=== PATIENT | male | born 2000 | race Caucasian/White ===

== ENCOUNTER 2021-01-31 15:59 | Emergency (ER) | payer OTHER, SELFPAY ==
--- NOTE | 2021-01-31 15:52 | ECG_ITS ---
APPROVED REPORT Exam: Resting ECG HR:80 bpm ECG Measurements Heart Rate 80 AXES AL 154 P 79 QRSd 96 QRS 16 QT 354 T 59 QTc 408 Conclusion Normal sinus rhythm with sinus arrhythmia Normal ECG Electronically signed by : Uriel Daniels, 02/02/2021 13:24:19
[2021-01-31 15:59] VITALS: BP 137/96; PULSE 74; RESP 20; TEMP 37.7; O2SAT 100; BMI 25.1
--- NOTE | 2021-01-31 16:01 | [facility].EDGENADL ---
ED Disposition Clinical Impression: Chest pain Qualifiers: Chest pain type: chest pain on breathing Qualified Code(s): R07.1 - Chest pain on breathing Disposition: Home, Self-Care Condition on Discharge: Good Additional Instructions: I believe you may be suffering from pleurisy. This is inflammation of the lining of your lung and chest cavity. When breathing his pain can be worsened especially on coughing and deep inhalation. Take high-dose ibuprofen, 800 mg in the morning and at night. Always take ibuprofen with food. Drink plenty of clear fluids. Please try to cut back on her smoking as this can lead to many adverse outcomes down the line. Return immediately to our emergency department if recurrent or worsening chest pain, shortness of breath, fever/chills, productive cough, or other new concerning symptoms. Referrals: PCP,No [Primary Care Provider] - - Critical Care Critical Care Time: No Attestation: On , the high probability of a clinically significant, sudden or life threatening deterioration of the following system(s) required my full and direct attention, intervention and personal management. The time I documented below is in addition to time spent performing reported procedures but includes the following listed in this critical care notation. Medical Decision Making - Medical Records Medical records reviewed: Yes: I reviewed the patient's medical records. - Angel Inquiry Pt receiving controlled substance: No Vital Signs: 01/31/21 15:59 01/31/21 16:31 01/31/21 17:01 Temperature 99.8 F H Temperature Source Oral Pulse Rate 58 L 61 Pulse Rate [Left Radial] 74 Respiratory Rate 20 18 17 Blood Pressure 127/83 114/63 Blood Pressure [Right Arm] 137/96 H Blood Pressure Mean 95 83 Blood Pressure Mean [Right Arm] 109 Blood Pressure Source [Right Arm] Automatic Cuff Blood Pressure Position [Right Arm] Sitting 02 Sat by Pulse Oximetry 100 98 99 Oxygen Delivery Method Room Air 01/31/21 17:30 Temperature Temperature Source Pulse Rate 61 Pulse Rate [Left Radial] Respiratory Rate 17 Blood Pressure 125/76 Blood Pressure [Right Arm] Blood Pressure Mean 93 Blood Pressure Mean [Right Arm] Blood Pressure Source [Right Arm] Blood Pressure Position [Right Arm] 02 Sat by Pulse Oximetry 99 Oxygen Delivery Method - Lab Data Lab Results 01/31/21 16:01: WBC 6.8, RBC 5.10, Hgb 16.1, Hct 48.0, MCV 94.1 H, MCH 31.5 H, MCHC 33.5, RDW 12.9, Plt Count 194, MPV 7.6, Neut % (Auto) 66.3, Lymph % (Auto) 27.1, [place] % (Auto) 5.1, Eos % (Auto) 0.8, Baso % (Auto) 0.7, Neut # (Auto) 4.5, Lymph # (Auto) 1.8, [place] # (Auto) 0.4, Eos # (Auto) 0.1, Baso # (Auto) 0.1 01/31/21 16:01: Sodium 139, Potassium 4.1, Chloride 103, Carbon Dioxide 29, Anion Gap 11.1, BUN 20, Creatinine 1.00, Estimated Creat Clear 130, Estimated GFR 96, Est GFR ( Amer) 116, Glucose 107 H, Calcium 9.4, Troponin I < 0.01 01/31/21 16:01: D-Dimer 0.82 H Result diagrams: 01/31/21 16:01 01/31/21 16:01 Orders (Tests/Meds): ED MEDICATIONS Discontinued Medications Generic Name Dose Route Start Last Admin Trade Name Freq PRN Reason Stop Dose Admin Iopamidol 70 ml 01/31/21 19:37 01/31/21 19:38 Iopamidol-370 (76%);100ml Bottle IV 01/31/21 19:38 70 ml ONCE ONE Administration Sodium Chloride 40 ml 01/31/21 19:37 01/31/21 19:38 0.9% Sodium Chloride 20ml Vial IV 01/31/21 19:38 40 ml ONCE ONE Administration Sodium Chloride 10 ml 01/31/21 19:37 01/31/21 19:38 Sodium Chloride 0.9% 10ml Syr (Rad Only) IV 01/31/21 19:38 10 ml ONCE ONE Administration ORDERS Category Date Time Status CT Chest w/PE protocol [CT angio chest] Stat Cat Scan 01/31/21 18:59 Taken Troponin I Q3H Lab 01/31/21 22:15 Ordered Medical Decision Narrative: Patient presents the emergency department with chest pain. EKG obtained at [facility] upon arrival demonstrates no acute ST elevation/depression. No signs of p
--- NOTE | 2021-01-31 16:12 | XR_ITS ---
PROCEDURE: XR CHEST 2V CLINICAL HISTORY: chest pain COMPARISON: No exams were available for comparison FINDINGS: No focal consolidation, pleural effusions or pneumothorax. The cardiac size and central pulmonary vasculature within normal limits. Visualized osseous structures are unremarkable. IMPRESSION: No acute cardiopulmonary process. Dictated by: Ailyn Morelos 01/31/2021 16:38 Ailyn Morelos in [place] 01/31/2021 16:38
[2021-01-31 16:24] LABS: Basophils # 0.1 K/mm3 (0-0.2); Basophils % 0.7 % (0.1-2.0); Eosinophils # 0.1 K/mm3 (0.0-0.4); Eosinophils % 0.8 % (0.1-12.0); Hemoglobin 16.1 g/dL (14.1-18.0); Lymphocytes # 1.8 K/mm3 (0.7-4.5); Lymphocytes % 27.1 % (10-50); Mean Corpuscular HGB Conc 33.5 g/dL (31.8-35.4); Mean Corpuscular Hemoglobin 31.5 pg (27.0-31.2); Mean Corpuscular Volume 94.1 fl (80-94); Mean Platelet Volume 7.6 fl (7.4-10.4); Monocytes # 0.4 K/mm3 (0.1-1.0); Monocytes % 5.1 % (1.7-9.3); Neutrophils # 4.5 K/mm3 (1.8-7.8); Neutrophils % 66.3 % (37.0-80.0); Platelet Count 194 K/mm3 (142-424); Red Cell Distribution Width 12.9 % (11.5-17.5); White Blood Count 6.8 K/mm3 (4.5-13.0)
[2021-01-31 16:31] VITALS: BP 127/83; PULSE 58; RESP 18; O2SAT 98
[2021-01-31 17:01] VITALS: BP 114/63; PULSE 61; RESP 17; O2SAT 99
[2021-01-31 17:01] LABS: Chloride 103 mmol/L (98-107); Potassium 4.1 mmoL/L (3.5-5.1); Sodium 139 mmol/L (136-145)
[2021-01-31 17:04] LABS: Anion Gap 11.1 mEq/L (5-15); Blood Urea Nitrogen 20 mg/dl (9-20); Calcium 9.4 mg/dl (8.4-10.2); Carbon Dioxide 29 mmol/L (22.0-30.0); Creatinine Clearance Estimated 130 mL/min (50-200); Estimated Glomerular Filt Rate 96 ml/min (>60); GFR (African American) 116 ML/MIN (>60); Glucose 107 mg/dl (74-100)
[2021-01-31 17:29] LABS: Troponin I < 0.01 ng/ml (0.00-0.034)
[2021-01-31 17:30] VITALS: BP 125/76; PULSE 61; RESP 17; O2SAT 99
[2021-01-31 18:42] LABS: D-Dimer 0.82 ug/mL (0.0-0.5)
--- NOTE | 2021-01-31 18:59 | CT_ITS ---
PROCEDURE: CT ANGIO CHEST CLINCIAL INDICATION: pleuritic chest pain with positive d dimer COMPARISON: No exams were available for comparison TECHNIQUE: IV Contrast: 70ML Isovue 370 Axial images obtained with sagittal and coronal reformats. All CT scans at the facility use one or more dose reduction, viz: automated exposure control, ma/kV adjustment per patient size (including targeted exams where dose is matched to indication, i.e. head), or iterative reconstruction technique. FINDINGS: HEART AND MEDIASTINAL STRUCTURES: The pulmonary arteries demonstrate normal opacification without evidence of focal filling defects. The heart size is normal. No pericardial effusions. The thoracic aorta is unremarkable. No significant mediastinal adenopathy. LUNGS AND PLEURAL SPACES: No focal consolidation, pleural effusions or pneumothorax. The central tracheobronchial tree is patent. No suspicious lung nodules are noted BONY STRUCTURES: Visualized osseous structures are unremarkable UPPER ABDOMEN: Visualized upper abdominal solid organs are unremarkable within the limitations of the phase of IV contrast. ADDITIONAL FINDINGS: Minor soft tissue density is noted in the anterior mediastinum, likely represents thymic remnant. The visualized thyroid gland is unremarkable. IMPRESSION: Unremarkable CT pulmonary angiogram. Dictated by: Ailyn Morelos 02/01/2021 09:45 Ailyn Morelos in [place] 02/01/2021 09:45
[2021-01-31 20:04] VITALS: BP 126/69; PULSE 62; RESP 19; TEMP 37.2
== END 2021-01-31 20:05 | disposition home or self-care (01) ==
PROVIDERS: Emergency Provider Emergency Medicine
DX: R07.1 Chest pain on breathing (principal); R09.1 Pleurisy; F17.210 Nicotine dependence, cigarettes, uncomplicated
CPT/HCPCS: 71046; 71275; 80048; 84484; 85025; 85378; 93005; 99282; Q9967

== ENCOUNTER → 2021-10-02 18:31 | Outpatient (CLI) | payer OTHER, SELFPAY | PROVIDERS: Visit Provider Nurse Practitioner | DX: Z20.822 Contact with and (suspected) exposure to COVID-19 (principal) | CPT/HCPCS: C9803; U0003; U0005 ==